=== PATIENT | female | born 1975 | race Caucasian/White ===

== ENCOUNTER → 2017-06-27 14:21 | Outpatient (CLI) | payer BC, SELFPAY ==
[2017-06-27 16:18] LABS: Erythrocyte Sedimentation Rate 5 MM/HR (0-20)
[2017-06-27 16:29] LABS: C-Reactive Protein Quant < 0.5 mg/dL (<1.0)
[2017-06-27 16:31] LABS: Rheumatoid Factor < 8.6 IU/mL (<12.0)
[2017-06-27 16:44] LABS: Free T3, Triiodothyronine Free 3.17 pg/mL (2.77-5.27)
[2017-06-27 16:58] LABS: Thyroid Stimulating Hormone 1.39 uIU/mL (0.47-4.68)
[2017-06-29 11:32] LABS: Homocysteine 10.3 umol/L (< 10.4)
[2017-06-29 14:29] LABS: Thyroid Peroxidase Antibodies < 1 IU/mL (< 9)
[2017-06-29 14:41] LABS: Lyme SCREEN w/ Reflex IgG IgM < 0.90 (< 0.90)
[2017-06-29 16:18] LABS: Triiodothyronine T3 Total 82 ng/dL (76-181)
[2017-06-30 08:41] LABS: ANA Screen, IFA Negative (Negative)
[2017-06-30 18:33] LABS: 18 kD IgG Band Nonreactive; 23 kD IgG Band Nonreactive; 28 kD IgG Band Nonreactive; 30 kD IgG Band Nonreactive; 39 kD IgG Band Nonreactive; 41 kD IgG Bands Nonreactive; 45 kD IgG Band Nonreactive; 58 kD IgG Band Nonreactive; 66 kD IgG Band Reactive; 93 kD IgG Bands Nonreactive
[2017-07-01 18:06] LABS: Triiodothyronine T3 Reverse 25 ng/dL (8-25)
== END ==
PROVIDERS: Family Provider Physician Assistant; PCP Physician Assistant; Visit Provider Physician Assistant
DX: R50.9 Fever, unspecified (principal); M25.50 Pain in unspecified joint; M79.1 Myalgia; R41.841 Cognitive communication deficit; W57.XXXA Bitten or stung by nonvenomous insect and other nonvenomous arthropods, initial encounter
CPT/HCPCS: 36415; 83090; 84443; 84480; 84481; 84482; 85651; 86038; 86140; 86376; 86430; 86618; 87086

== ENCOUNTER 2018-07-23 16:46 | Emergency (ER) | payer BC, SELFPAY ==
[2018-07-23 16:53] VITALS: BP 129/85; PULSE 66; RESP 16; O2SAT 96; BMI 24.4
--- NOTE | 2018-07-23 16:55 | DI.RAD.S_ITS ---
PROCEDURE: XR CHEST 1V INDICATIONS: CHEST PAIN TECHNIQUE: One view of the chest was acquired. COMPARISON: None. FINDINGS: Surgical changes and devices: None. Lungs and pleura: Lungs are clear. No pleural effusions or pneumothorax. Mediastinum: Mediastinal contours appear normal. Heart size is normal. Bones and chest wall: No suspicious bony lesions. Overlying soft tissues appear unremarkable. IMPRESSION: No acute process. Dictated by: Brian Dominguez M.D. on 07/23/2018 at 16:16 Approved by: Brian Dominguez M.D. on 07/23/2018 at 16:16
[2018-07-23 17:12] LABS: Add Manual Diff / Slide Review NO; Basophils Absolute Auto 100 /uL (0-100); Basophils Percent Auto 0.7 % (0-2); Eosinophils Absolute Auto 200 /uL (0-450); Eosinophils Percent Auto 1.8 % (2-4); Hematocrit 38.4 % (36-46); Hemoglobin 12.7 g/dL (12.0-16.0); Lymphocytes Absolute Auto 2700 /uL (1100-4500); Mean Corpuscular HGB Conc 33.2 % (30-36); Mean Corpuscular Volume 93.3 fL (80-100); Monocytes Absolute Auto 600 /uL (0-900); Monocytes Percent Auto 6.4 % (3-14); Neutrophils Absolute Auto 6200 /uL (1500-7000); Neutrophils Percent Auto 63.1 % (50-75); Platelet Count 255 X10^3/uL (150-400); Red Blood Cell Count 4.11 X10^6/uL (4.0-5.2); Red Cell Distribution Width 13.6 % (11.6-14.8); White Blood Cell Count 9.8 X10^3/uL (4.5-11.0)
[2018-07-23 17:17] LABS: INR 0.9 (0.9-1.3); Prothrombin Time 10.1 SECONDS (10.1-12.7)
[2018-07-23 17:19] LABS: PTT Partial Thromboplastin Tim 30 SECONDS (26.4-36.2)
[2018-07-23 17:21] LABS: Alanine Aminotransferase 56 IU/L (9-52); Albumin 4.4 g/dL (3.5-5.0); Albumin Globulin Ratio 1.4 (1.0-2.8); Alkaline Phosphatase 56 U/L (38-126); Aspartate Aminotransferase 48 IU/L (14-36); BUN Creatinine Ratio 28.3 (6-22); Bilirubin Total 0.6 mg/dL (0.2-1.3); Blood Urea Nitrogen 17 mg/dL (7-17); Calcium 8.9 mg/dL (8.4-10.2); Carbon Dioxide 27 mmol/L (22-32); Chloride 104 mmol/L (98-107); Creatine Kinase 78 U/L (30-135); Estimated Glomerular Filt Rate > 60.0 mL/min (>60); Globulin 3.1 g/dL (1.7-4.1); Glucose 93 mg/dL (70-100); HEMOLYSIS 35 (0-50); Lipase 157 U/L (23-300); Sodium 139 mmol/L (137-145); Total Protein 7.5 g/dL (6.3-8.2)
[2018-07-23 17:30] VITALS: BP 128/75; PULSE 73; RESP 20; O2SAT 100
[2018-07-23 17:33] LABS: Troponin I < 0.012 ng/mL (0.01-0.034)
[2018-07-23 18:18] VITALS: BP 111/68; PULSE 60; RESP 17; O2SAT 100
--- NOTE | 2018-07-23 18:30 | ED.CHESTPAIN ---
HPI - Chest Pain General Chief Complaint: Chest Pain Stated Complaint: chest pain today Time Seen by Provider: 07/23/18 17:41 Source: patient Mode of arrival: ambulatory Limitations: no limitations History of Present Illness HPI narrative: Patient is a 43-year-old female who presents with left-sided chest pain. She has a history of Lyme disease diagnosed 1 year ago seems to be currently under control with some supplements and she is followed by physician in [place]. She said she was sitting at her desk today when it started on the left side. Started sort of in her clavicle area moved down to about rib 3 or 4. The hurts whenever she takes a deep breath she denies any shortness of breath. She has no dizziness lightheadedness no a.m. syncope syncope. The she has not had any fever or chills. She has had headache for the last 5 days she has been taking Tylenol and ibuprofen. She was throwing up yesterday. Her headache her overall today feels much better she has no neck pain he is tolerating oral fluids. She has not had any fever or cough. MD complaint: chest pain Time: 10:00 Duration: constant Onset: during rest Pain location: left chest Severity: mild Quality: sharp Pain radiation: none Relieving factors: nothing Related Data Home Medications Medication Instructions Recorded Confirmed liothyronine 5 mcg tablet 20 mcg PO DAILY tab 10/07/17 07/23/18 lauricidin 1 dose PO TID 04/10/18 07/23/18 Alimax 1 cap PO BIDX7 07/23/18 07/23/18 Berberine 1 cap PO BIDX7 07/23/18 07/23/18 Aly 100 - 300 mg PO BEDTIME 07/23/18 07/23/18 Huperzine A 100 - 200 mg PO [id number] 07/23/18 07/23/18 Neem 1 cap PO BIDX7 07/23/18 07/23/18 Oregano 1 cap PO BIDX7 07/23/18 07/23/18 Pqq Plus 50 mg PO DAILY 07/23/18 07/23/18 Quercernase 1 tab PO BID 07/23/18 07/23/18 Theanine 1 tab PO BID 07/23/18 07/23/18 Vinpocetin 10 mg PO DAILY 07/23/18 07/23/18 Vitamin C 1 tab PO BID 07/23/18 07/23/18 glutamine 1 dose PO DAILY 07/23/18 07/23/18 melatonin 1 mg PO BEDTIME 07/23/18 07/23/18 nystatin 2 tab PO BIDX7 07/23/18 07/23/18 progesterone micronized 100 mg PO QPM 07/23/18 07/23/18 Allergies Allergy/AdvReac Type Severity Reaction Status Date / Time No Known Drug Allergies Allergy Verified 07/23/18 16:53 Review of Systems Review of Systems GENERAL: Denies chills, fatigue, malaise, fever, sweats, travel HEENT: Denies sinus pain, ear pain, sore throat, difficulty swallowing, neck pain RESPIRATORY: Denies dyspnea, cough, wheezing, hemoptysis, sputum. CARDIOVASCULAR: Denies chest pain, palpitations, orthopnea, edema GASTROINTESTINAL: Denies nausea, vomiting, abdominal pain, diarrhea, constipation, melena. : Denies dysuria, frequency, incontinence, hematuria, urinary retention, flank pain. MUSCULOSKELETAL: Denies weakness, joint pain, or bony pain SKIN: No rash, no erythema, no pruritus NEUROLOGIC: Denies weakness, dizziness, headache, numbness, change in speech, confusion PSYCHIATRIC: No concerning psychosocial issues. 12 point review of systems is negative except for those stated above and HPI [facility] Social History Smoking Status: Never smoker Exam Initial Vital Signs Initial Vital Signs: Vital Signs Pulse Rate 66 07/23/18 16:53 Respiratory Rate 16 07/23/18 16:53 Blood Pressure 129/85 07/23/18 16:53 Pulse Oximetry 96 07/23/18 16:53 GENERAL: Well-appearing, well-nourished and in no acute distress. HEENT: Head atraumatic,EOMI, pupils reactive, CARDIOVASCULAR: Regular rate and rhythm without murmurs, rubs or gallops. RESPIRATORY: Breath sounds equal bilaterally, no wheezes rales or rhonchi. ABDOMEN: Soft, nontender. Normoactive bowel sounds all 4 quadrants. No guarding or rebound. EXTREMITIES: Normal range of motion, no clubbing or edema. Neurovascularly intact NEUROLOGICAL: Alert and oriented x4.Normal gait and speech. Cranial nerves II through XII grossly intact. SKIN: Warm, dry, no laceration, no petechiae, no rashes or lesions. Scores HEART Score Heart Score history: Slightly Suspicious Heart Score EKG: Normal Heart Score Age: < 45 years old Heart Score risk factors: No known risk factors Heart Score troponin: < or = to normal limit Heart Score Total: 0 Course Orders Ordered: ED Orders 07/23/18 16:52 EKG-12 Lead Stat 07/23/18 16:55 XR chest 1V Stat 07/23/18 17:04 Complete Blood Count AUTO DIFF Stat Comprehensive Metabolic Panel Stat Lipase Stat Partial Thromboplastin Time Stat Prothrombin Time INR Stat Troponin & CK Cardiac Panel Stat Discontinued Medications Ketorolac Tromethamine (Toradol) 30 mg IV NOW ONE Stop: 07/23/18 18:39 Last Admin: 07/23/18 19:15 Dose: 30 mg Vital Signs - 8 hr 07/23/18 18:18 07/23/18 19:00 07/23/18 19:30 Pulse Rate 60 53 L 56 L Respiratory Rate 17 14 13 Blood Pressure Blood Pressure [Left Arm] 111/68 124/73 103/69 Pulse Oximetry 100 100 100 07/23/18 19:55 Pulse Rate 70 Respiratory Rate 16 Blood Pressure 120/64 Blood Pressure [Left Arm] Pulse Oximetry 98 MDM - Chest Pain Lab Data Attestation: I reviewed the patient's lab results. Result diagrams: 07/23/18 17:04 07/23/18 17:04 Lab Results 07/23/18 07/23/18 07/23/18 Range/Units 17:04 17:04 17:04 WBC 9.8 (4.5-11.0) X10^3/uL RBC 4.11 (4.0-5.2) X10^6/uL Hgb 12.7 (12.0-16.0) g/dL Hct 38.4 (36-46) % MCV 93.3 (80-100) fL MCH 31.0 (26-34) PG MCHC 33.2 (30-36) % RDW 13.6 (11.6-14.8) % Plt Count 255 (150-400) X10^3/uL Neut % (Auto) 63.1 (50-75) % Lymph % (Auto) 28.0 (25-40) % Sutter % (Auto) 6.4 (3-14) % Eos % (Auto) 1.8 L (2-4) % Baso % (Auto) 0.7 (0-2) % Neut # (Auto) 6200 (3769-8441) /uL Lymph # (Auto) 2700 (2714-5660) /uL Sutter # (Auto) 600 (0-900) /uL Eos # (Auto) 200 (0-450) /uL Baso # (Auto) 100 (0-100) /uL PT 10.1 (10.1-12.7) SECONDS INR 0.9 (0.9-1.3) APTT 30 (26.4-36.2) SECONDS Sodium 139 (137-145) mmol/L Potassium 4.0 (3.4-5.1) mmol/L Chloride 104 (98-107) mmol/L Carbon Dioxide 27 (22-32) mmol/L BUN 17 (7-17) mg/dL Creatinine 0.60 (0.52-1.04) mg/dL Estimated GFR > 60.0 (>60) mL/min BUN/Creatinine Ratio 28.3 H (6-22) Glucose 93 (70-100) mg/dL Calcium 8.9 (8.4-10.2) mg/dL Total Bilirubin 0.6 (0.2-1.3) mg/dL AST 48 H (14-36) IU/L ALT 56 H (9-52) IU/L Alkaline Phosphatase 56 (38-126) U/L Total Creatine Kinase 78 (30-135) U/L CK-MB (CK-2) TNP CK-MB (CK-2) Rel Index TNP Troponin I < 0.012 (0.01-0.034) ng/mL Total Protein 7.5 (6.3-8.2) g/dL Albumin 4.4 (3.5-5.0) g/dL Globulin 3.1 (1.7-4.1) g/dL Albumin/Globulin Ratio 1.4 (1.0-2.8) Lipase 157 (23-300) U/L Imaging Data Chest x-ray: Attestation: I personally reviewed and interpreted this imaging study as follows: My impression: no acute cardiopulmonary process Radiologist's impression: [facility] but no acute process read by Radiology ECG Data Attestation: I personally reviewed and interpreted this ECG as follows: Prior ECG tracings: not available for review Interpretation: Normal sinus rhythm rate 61 p.r. interval 121 QTC 437. No AV block appreciated no ST changes no T-wave inversions. MDM Narrative Medical decision making narrative: Patient's pain is left chest improved only slightly with Toradol. No evidence of AV block. Possible pericarditis which can happen with Lyme disease. Low risk for coronary artery disease. Recommended she take ibuprofen and follow up with PCP. She agrees with this plan. Discharge Plan Departure Patient Disposition: Home Clinical Impression: Atypical chest pain Discharge Date/Time: 07/23/18 19:56 Interventions: ED Discharge Assessment Last Done: 07/23/18 19:55 Instructions: DI for Atypical Chest Pain Activity Restrictions/Additional Instructions: *You have been diagnosed with atypical chest pain *What to do: Possible pericarditis *Continue to take medications as directed Motrin 800 mg every 8 hours if needed for pain for up to 2 weeks *Follow up with your primary care provider in 2-3 days *Return to ER if you should have increasing pain passing out or any new, worsening or concerning symptoms Prescriptions: No Action liothyronine 5 mcg tablet 20 mcg PO DAILY RF: 0 lauricidin 1 dose PO TID RF: 0 progesterone micronized 100 mg capsule 100 mg PO QPM RF: 0 Alimax 1 cap PO BIDX7 RF: 0 nystatin 500,000 unit tablet 2 tab PO BIDX7 RF: 0 melatonin 1 mg Tablet 1 mg PO BEDTIME RF: 0 Berberine 1 cap PO BIDX7 RF: 0 Aly 100 - 300 mg PO BEDTIME RF: 0 Huperzine A 100 - 200 mg PO [id number] RF: 0 Neem 1 cap PO BIDX7 RF: 0 Oregano 1 cap PO BIDX7 RF: 0 Pqq Plus 50 mg PO DAILY RF: 0 Quercernase 1 tab PO BID RF: 0 Theanine 1 tab PO BID RF: 0 Vinpocetin 10 mg PO DAILY RF: 0 Vitamin C 1 tab PO BID RF: 0 glutamine 1 dose PO DAILY RF: 0
--- NOTE | 2018-07-23 18:47 | ED_ITS ---
HPI - Chest Pain General Chief Complaint: Chest Pain Stated Complaint: chest pain today Time Seen by Provider: 07/23/18 17:41 Source: patient Mode of arrival: ambulatory Limitations: no limitations History of Present Illness HPI narrative: Patient is a 43-year-old female who presents with left-sided chest pain. She has a history of Lyme disease diagnosed 1 year ago seems to be currently under control with some supplements and she is followed by physician in [place]. She said she was sitting at her desk today when it started on the left side. Started sort of in her clavicle area moved down to about rib 3 or 4. The hurts whenever she takes a deep breath she denies any shortness of breath. She has no dizziness lightheadedness no a.m. syncope syncope. The she has not had any fever or chills. She has had headache for the last 5 days she has been taking Tylenol and ibuprofen. She was throwing up yesterday. Her headache her overall today feels much better she has no neck pain he is tolerating oral flu ids. She has not had any fever or cough. MD complaint: chest pain Time: 10:00 Duration: constant Onset: during rest Pain location: left chest Severity: mild Quality: sharp Pain radiation: none Relieving factors: nothing Related Data Home Medications Medication Instructions Recorded Confirmed liothyronine 5 mcg tablet 20 mcg PO DAILY tab 10/07/17 07/23/18 lauricidin 1 dose PO TID 04/10/18 07/23/18 Alimax 1 cap PO BIDX7 07/23/18 07/23/18 Berberine 1 cap PO BIDX7 07/23/18 07/23/18 Aly 100 - 300 mg PO BEDTIME 07/23/18 07/23/18 Huperzine A 100 - 200 mg PO [id number] 07/23/18 07/23/18 Neem 1 cap PO BIDX7 07/23/18 07/23/18 Oregano 1 cap PO BIDX7 07/23/18 07/23/18 Pqq Plus 50 mg PO DAILY 07/23/18 07/23/18 Quercernase 1 tab PO BID 07/23/18 07/23/18 Theanine 1 tab PO BID 07/23/18 07/23/18 Vinpocetin 10 mg PO DAILY 07/23/18 07/23/18 Vitamin C 1 tab PO BID 07/23/18 07/23/18 glutamine 1 dose PO DAILY 07/23/18 07/23/18 melatonin 1 mg PO BEDTIME 07/23/18 07/23/18 nystatin 2 tab PO BIDX7 07/23/18 07/23/18 progesterone micronized 100 mg PO QPM 07/23/18 07/23/18 Allergies Allergy/AdvReac Type Severity Reaction Status Date / Time No Known Drug Allergies Allergy Verified 07/23/18 16:53 Review of Systems Review of Systems GENERAL: Denies chills, fatigue, malaise, fever, sweats, travel HEENT: Denies sinus pain, ear pain, sore throat, difficulty swallowing, neck pain RESPIRATORY: Denies dyspnea, cough, wheezing, hemoptysis, sputum. CARDIOVASCULAR: Denies chest pain, palpitations, orthopnea, edema GASTROINTESTINAL: Denies nausea, vomiting, abdominal pain, diarrhea, constipa tion, melena. : Denies dysuria, frequency, incontinence, hematuria, urinary retention, flank pain. MUSCULOSKELETAL: Denies weakness, joint pain, or bony pain SKIN: No rash, no erythema, no pruritus NEUROLOGIC: Denies weakness, dizziness, headache, numbness, change in speech, confusion PSYCHIATRIC: No concerning psychosocial issues. 12 point review of systems is negative except for those stated above and HPI [facility] Social History Smoking Status: Never smoker Exam Initial Vital Signs Initial Vital Signs: Vital Signs Pulse Rate 66 07/23/18 16:53 Respiratory Rate 16 07/23/18 16:53 Blood Pressure 129/85 07/23/18 16:53 Pulse Oximetry 96 07/23/18 16:53 GENERAL: Well-appearing, well-nourished and in no acute distress. HEENT: Head atraumatic,EOMI, pupils reactive, CARDIOVASCULAR: Regular rate and rhythm without murmurs, rubs or gallops. RESPIRATORY: Breath sounds equal bilaterally, no wheezes rales or rhonchi. ABDOMEN: Soft, nontender. Normoactive bowel sounds all 4 quadrants. No guarding or rebound. EXTREMITIES: Normal range of motion, no clubbing or edema. Neurovascularly intact NEUROLOGICAL: Alert and oriented x4.Normal gait and speech. Cranial nerves II through XII grossly intact. SKIN: Warm, dry, no laceration, no petechiae, no rashes or lesions. Scores HEART Score Heart Score history: Slightly Suspicious Heart Score EKG: Normal Heart Score Age: < 45 years old Heart Score risk factors: No known risk factors Heart Score troponin: < or = to normal limit Heart Score Total: 0 Course Orders Ordered: ED Orders 07/23/18 16:52 EKG-12 Lead Stat 07/23/18 16:55 XR chest 1V Stat 07/23/18 17:04 Complete Blood Count AUTO DIFF Stat Comprehensive Metabolic Panel Stat Lipase Stat Partial Thromboplastin Time Stat Prothrombin Time INR Stat Troponin & CK Cardiac Panel Stat Discontinued Medications Ketorolac Tromethamine (Toradol) 30 mg IV NOW ONE Stop: 07/23/18 18:39 Last Admin: 07/23/18 19:15 Dose: 30 mg Vital Signs - 8 hr 07/23/18 18:18 07/23/18 19:00 07/23/18 19:30 Pulse Rate 60 53 L 56 L Respiratory Rate 17 14 13 Blood Pressure Blood Pressure [Left Arm] 111/68 124/73 103/69 Pulse Oximetry 100 100 100 07/23/18 19:55 Pulse Rate 70 Respiratory Rate 16 Blood Pressure 120/64 Blood Pressure [Left Arm] Pulse Oximetry 98 MDM - Chest Pain Lab Data Attestation: I reviewed the patient's lab results. Result diagrams: 07/23/18 17:04 07/23/18 17:04 Lab Results 07/23/18 07/23/18 07/23/18 Range/Units 17:04 17:04 17:04 WBC 9.8 (4.5-11.0) X10^3/uL RBC 4.11 (4.0-5.2) X10^6/uL Hgb 12.7 (12.0-16.0) g/dL Hct 38.4 (36-46) % MCV 93.3 (80-100) fL MCH 31.0 (26-34) PG MCHC 33.2 (30-36) % RDW 13.6 (11.6-14.8) % Plt Count 255 (150-400) X10^3/uL Neut % (Auto) 63.1 (50-75) % Lymph % (Auto) 28.0 (25-40) % Coles % (Auto) 6.4 (3-14) % Eos % (Auto) 1.8 L (2-4) % Baso % (Auto) 0.7 (0-2) % Neut # (Auto) 6200 (8720-4181) /uL Lymph # (Auto) 2700 (2836-6003) /uL Coles # (Auto) 600 (0-900) /uL Eos # (Auto) 200 (0-450) /uL Baso # (Auto) 100 (0-100) /uL PT 10.1 (10.1-12.7) SECONDS INR 0.9 (0.9-1.3) APTT 30 (26.4-36.2) SECONDS Sodium 139 (137-145) mmol/L Potassium 4.0 (3.4-5.1) mmol/L Chloride 104 (98-107) mmol/L Carbon Dioxide 27 (22-32) mmol/L BUN 17 (7-17) mg/dL Creatinine 0.60 (0.52-1.04) mg/dL Estimated GFR > 60.0 (>60) mL/min BUN/Creatinine Ratio 28.3 H (6-22) Glucose 93 (70-100) mg/dL Calcium 8.9 (8.4-10.2) mg/dL Total Bilirubin 0.6 (0.2-1.3) mg/dL AST 48 H (14-36) IU/L ALT 56 H (9-52) IU/L Alkaline Phosphatase 56 (38-126) U/L Total Creatine Kinase 78 (30-135) U/L CK-MB (CK-2) TNP CK-MB (CK-2) Rel Index TNP Troponin I < 0.012 (0.01-0.034) ng/mL Total Protein 7.5 (6.3-8.2) g/dL Albumin 4.4 (3.5-5.0) g/dL Globulin 3.1 (1.7-4.1) g/dL Albumin/Globulin Ratio 1.4 (1.0-2.8) Lipase 157 (23-300) U/L Imaging Data Chest x-ray: Attestation: I personally reviewed and interpreted this imaging study as follows: My impression: no acute cardiopulmonary process Radiologist's impression: Radiology report not in [facility] for some reason but no acute process read by Radiology ECG Data Attestation: I personally reviewed and interpreted this ECG as follows: Prior ECG tracings: not available for review Interpretation: Normal sinus rhythm rate 61 p.r. interval 121 QTC 437. No AV block appreciated no ST changes no T-wave inversions. MDM Narrative Medical decision making narrative: Patient's pain is left chest improved only slightly with Toradol. No evidence of AV block. Possible pericarditis which can happen with Lyme disease. Low risk for coronary artery disease. Recommended she take ibuprofen and follow up with PCP. She agrees with this plan. Discharge Plan Departure Patient Disposition: Home Clinical Impression: Atypical chest pain Discharge Date/Time: 07/23/18 19:56 Interventions: ED Discharge Assessment Last Done: 07/23/18 19:55 Instructions: DI for Atypical Chest Pain Activity Restrictions/Additional Instructions: *You have been diagnosed with atypical chest pain *What to do: Possible pericarditis *Continue to take medications as directed Motrin 800 mg every 8 hours if needed for pain for up to 2 weeks *Follow up with your primary care provider in 2-3 days *Return to ER if you should have increasing pain passing out or any new, worsening or concerning symptoms Prescriptions: No Action liothyronine 5 mcg tablet 20 mcg PO DAILY RF: 0 lauricidin 1 dose PO TID RF: 0 progesterone micronized 100 mg capsule 100 mg PO QPM RF: 0 Alimax 1 cap PO BIDX7 RF: 0 nystatin 500,000 unit tablet 2 tab PO BIDX7 RF: 0 melatonin 1 mg Tablet 1 mg PO BEDTIME RF: 0 Berberine 1 cap PO BIDX7 RF: 0 Aly 100 - 300 mg PO BEDTIME RF: 0 Huperzine A 100 - 200 mg PO [id number] RF: 0 Neem 1 cap PO BIDX7 RF: 0 Oregano 1 cap PO BIDX7 RF: 0 Pqq Plus 50 mg PO DAILY RF: 0 Quercernase 1 tab PO BID RF: 0 Theanine 1 tab PO BID RF: 0 Vinpocetin 10 mg PO DAILY RF: 0 Vitamin C 1 tab PO BID RF: 0 glutamine 1 dose PO DAILY RF: 0
[2018-07-23 19:00] VITALS: BP 124/73; PULSE 53; RESP 14; O2SAT 100
[2018-07-23] MEDS: KETOROLAC 60 MG/2 ML VIAL 30 MG IV (19:15)
[2018-07-23 19:30] VITALS: BP 103/69; PULSE 56; RESP 13; O2SAT 100
[2018-07-23 19:55] VITALS: BP 120/64; PULSE 70; RESP 16; O2SAT 98
== END 2018-07-23 19:56 | disposition home or self-care (01) ==
PROVIDERS: Emergency Medicine; Emergency Provider Emergency Medicine
DX: R07.89 Other chest pain (principal)
CPT/HCPCS: 36591; 71045; 80053; 82550; 83690; 84484; 85025; 85610; 85730; 93005; 96374; 99283; 99285; J1885

== ENCOUNTER → 2018-12-12 09:11 | Outpatient (CLI) | payer BC, SELFPAY ==
--- NOTE | 2018-12-12 09:27 | DI.MG.S_ITS ---
BILATERAL DIGITAL SCREENING MAMMOGRAM 3D/2D WITH CAD WITH AUGMENTATION: 12/12/2018 CLINICAL: Routine screening. Comparison is made to exam dated: 08/04/2008 mammogram - [facility]. The tissue of both breasts is heterogeneously dense. This may lower the sensitivity of mammography. Current study was also evaluated with a Computer Aided Detection (CAD) system. Bilateral breast implants are intact. No significant masses, calcifications, or other findings are seen in either breast. There has been no significant interval change. IMPRESSION: NEGATIVE There is no mammographic evidence of malignancy. A 1 year screening mammogram is recommended. This exam was interpreted at Station ID: [id number]. NOTE: For mammograms, a report in lay terms will be sent to the patient. Approximately 15% of breast malignancies will not be visualized mammographically. In the management of a palpable breast mass, a negative mammogram must not discourage biopsy of a clinically suspicious lesion. Electronically Signed By: Dana lim/razia:12/14/2018 11:52:49 letter sent: Normal Exam ACR BI-RADS Category 1: Negative 3341F
== END ==
PROVIDERS: PCP Physician Assistant; Visit Provider Physician Assistant
DX: Z12.31 Encounter for screening mammogram for malignant neoplasm of breast (principal)
CPT/HCPCS: 77063; 77067

== ENCOUNTER → 2019-03-24 12:52 | Outpatient (CLI) | payer BC, SELFPAY ==
[2019-03-24 13:46] LABS: Influenza A - CEPHEID Flu A POSITIVE (NEGATIVE); Influenza B - CEPHEID Flu B NEGATIVE (NEGATIVE)
== END ==
PROVIDERS: PCP Physician Assistant; Visit Provider Nurse Practitioner
DX: J11.1 Influenza due to unidentified influenza virus with other respiratory manifestations (principal)
CPT/HCPCS: 87502

== ENCOUNTER → 2020-03-06 13:48 | Outpatient (CLI) | payer BC, SELFPAY ==
[2020-03-06 14:15] LABS: COVID19 -Nasal RAPID Negative (Negative)
== END ==
PROVIDERS: PCP Physician Assistant; Visit Provider Physician Assistant
DX: Z20.822 Contact with and (suspected) exposure to COVID-19 (principal)
CPT/HCPCS: 87635

== ENCOUNTER → 2020-05-09 09:36 | Outpatient (CLI) | payer BC, SELFPAY | PROVIDERS: PCP Physician Assistant; Referring Provider Physician Assistant; Visit Provider Physician Assistant | DX: Z12.31 Encounter for screening mammogram for malignant neoplasm of breast (principal); Z53.9 Procedure and treatment not carried out, unspecified reason ==

== ENCOUNTER → 2020-06-26 12:48 | Outpatient (CLI) | payer BC, SELFPAY ==
--- NOTE | 2020-06-26 | DI.MG.S_ITS ---
BILATERAL DIGITAL DIAGNOSTIC MAMMOGRAM 3D/2D WITH AUGMENTATION: 06/26/2020 CLINICAL: Right itchy breast. Comparison is made to exams dated: 12/12/2018 mammogram - [facility] and 08/04/2008 mammogram - [facility]. The tissue of both breasts is heterogeneously dense. This may lower the sensitivity of mammography. There is a benign low density subcutaneous area measulipoma in the right breast sub-areolar depth medial region There is a benign subcutaneous low-density area measuring 5 centimeters in diameter and approximately 5 millimeters thick which is likely a lipoma or benign subcutaneous fat. Spot magnification views were performed in addition to standard diagnostic views and no mass or calcifications to suggest malignancy are identified on the craniocaudal view only. No other significant masses, calcifications, or other findings are seen in either breast. IMPRESSION: BENIGN There is no mammographic evidence of malignancy. There are no skin or nipple changes or discoloration reported. A 1 year screening mammogram is recommended. Recommend clinical follow-up. If there is any further change clinically, recommend repeat mammogram and possible ultrasound. This exam was interpreted at Station ID: [id number]. NOTE: For mammograms, a report in lay terms will be sent to the patient. Approximately 15% of breast malignancies will not be visualized mammographically. In the management of a palpable breast mass, a negative mammogram must not discourage biopsy of a clinically suspicious lesion. Electronically Signed By: Armando Mandel acr/:06/26/2020 14:19:25 letter sent: Clinical Evaluation ACR BI-RADS Category 2: Benign Finding(s) 3342F
== END ==
PROVIDERS: PCP Nurse Practitioner Family; Referring Provider Nurse Practitioner Family; Visit Provider Nurse Practitioner Family
DX: R23.4 Changes in skin texture (principal); Z98.82 Breast implant status
CPT/HCPCS: 77066; G0279

== ENCOUNTER → 2022-06-22 09:13 | Outpatient (CLI) | payer OTHER, SELFPAY ==
--- NOTE | 2022-06-22 | DI.MG.S_ITS ---
BILATERAL DIGITAL SCREENING MAMMOGRAM 3D/2D WITH CAD WITH AUGMENTATION: 06/22/2022 CLINICAL: Patient presents for routine screening. S/P bilateral augmentation. Comparison is made to exams dated: 06/26/2020 mammogram, 12/12/2018 mammogram - [facility], and 08/04/2008 mammogram - [facility]. There are scattered areas of fibroglandular density in both breasts (category b / 25%-50% glandular tissue). Current study was also evaluated with a Computer Aided Detection (CAD) system. Bilateral breast implants are stable. No significant masses, calcifications, or other findings are seen in either breast. There has been no significant interval change. IMPRESSION: NEGATIVE There is no mammographic evidence of malignancy. A 1 year screening mammogram is recommended. Based on the Tyrer Cuzick model (a risk assessment model) the patient's lifetime risk is 5.7% and her 10 year risk is 1.0%. According to the ACR, ACS, and NCCN guidelines, an annual breast MRI exam along with mammogram is recommended if the patient's lifetime risk is 20% or greater. This exam was interpreted at Station ID: [id number]. NOTE: For mammograms, a report in lay terms will be sent to the patient. Approximately 15% of breast malignancies will not be visualized mammographically. In the management of a palpable breast mass, a negative mammogram must not discourage biopsy of a clinically suspicious lesion. Electronically Signed By: Yon mistry/razia:06/22/2022 16:08:56 letter sent: Normal Exam ACR BI-RADS Category 1: Negative 3341F
== END ==
PROVIDERS: PCP Acupuncturist; Referring Provider Acupuncturist; Visit Provider Acupuncturist
DX: Z12.31 Encounter for screening mammogram for malignant neoplasm of breast (principal); Z98.82 Breast implant status
CPT/HCPCS: 77063; 77067